=== PATIENT | male | born 1965 | race Caucasian/White ===

== ENCOUNTER 2020-02-24 18:06 | Emergency (ER) | payer OTHER ==
[2020-02-24 18:23] VITALS: BP 168/74; PULSE 80; BMI 25.8
[2020-02-24] MEDS ORDERED: CYCLOBENZAPRINE HCL 5 MG TABLET PO ONE (20:01)
[2020-02-24] MEDS ORDERED: CYCLOBENZAPRINE HCL 10 MG TABLET (FP) ONE (20:17)
[2020-02-24] MEDS ORDERED: IBUPROFEN 600 MG TABLET (FP) PO ONE ×2 (20:25→20:32)
[2020-02-25] MEDS ORDERED: CYCLOBENZAPRINE HCL 5 MG TABLET PO ONE (20:01)
== END 2020-02-24 20:51 | disposition home or self-care (01) ==
LOC: JER 18:06
DX: M25.511 Pain in right shoulder (principal)
CPT/HCPCS: 73030-TC-RT-FY; 99284-25

== ENCOUNTER 2020-02-28 17:32 | Emergency (ER) | payer OTHER | END 2020-02-28 18:49 | disposition home or self-care (01) | LOC: JERFT 17:32 | DX: M25.511 Pain in right shoulder (principal) | CPT/HCPCS: 99282-25 ==

== ENCOUNTER 2022-08-19 10:26 | Day surgery (SDC) | payer OTHER ==
[2022-08-18 10:54] VITALS: BMI 29.0
[2022-08-19 12:25] VITALS: RESP 18; TEMP 96.8
[2022-08-19 12:40] VITALS: BP 136/54; PULSE 65
== END 2022-08-19 12:53 | disposition home or self-care (01) ==
LOC: FASU-ENDO 10:26
PROVIDERS: ATTEND Internal Medicine Gastroenterology
PROC: 0DJD8ZZ Inspection of Lower Intestinal Tract, Via Natural or Artificial Opening Endoscopic (ICD-10-PCS; principal; 2022-08-19 11:57)
DX: Z12.11 Encounter for screening for malignant neoplasm of colon (principal); K64.1 Second degree hemorrhoids